=== PATIENT | male | born 1945 | race Caucasian/White ===

== ENCOUNTER 2019-06-25 08:29 | Inpatient (IN) | payer OTHER ==
[~2019-06-25] VITALS: Ht 172.7 cm; Wt 86.2 kg
[2019-06-25 08:30] VITALS: BP_SYST 159
--- NOTE | 2019-06-25 08:30 | NUR ---
BROUGHT BACK TO BED #6 AND TRIAGED. REPORT GIVEN TO VASILIY
--- NOTE | 2019-06-25 08:35 | NUR ---
ER at bedside examining patient.
--- NOTE | 2019-06-25 08:40 | NUR ---
PT CAME TO ER C/O L CHEST PRESSURE, PT STATES NO PAIN. HE WAS LAYING ON COUCH WITH HIS DOG WHEN HE BEGAN TO FEEL THIS PRESSURE. PT IS CURRENTLY COMFORTABLE IN ROOM, ON MANAGEMENT NURSE RN
[2019-06-25] MEDS ORDERED: ASPIRIN 81 MG TAB.CHEW PO ONE (08:45)
--- NOTE | 2019-06-25 08:45 | NUR ---
# 20 gauge angiocath placed to LAC. Use of asceptic technique. Opsite placed over site. Blood return noted. Blood for lab drawn from site. Flushed with 10 cc of normal saline. No evidence of infiltration noted. Patient tolerated well.
[2019-06-25 09:20] LABS: BASOPHILS % (AUTO) 0.6 % (0.0-2.0); EOSINOPHILS # (AUTO) 0.1 K/uL (0.0-0.4); EOSINOPHILS % (AUTO) 1.6 % (0.0-4.0); HEMATOCRIT 46.1 % (36-54); HEMOGLOBIN 15.7 g/dL (14.0-18.0); LYMPHOCYTES # (AUTO) 2.3 K/uL (1.0-5.5); LYMPHOCYTES % (AUTO) 30.2 % (20.5-51.5); MEAN CORPUSCULAR HEMOGLOBIN 33 pg (27-31); MEAN CORPUSCULAR HGB CONC 34 % (32-36); MEAN CORPUSCULAR VOLUME 96 fL (79.0-98.0); MONOCYTES # (AUTO) 0.5 K/uL (0.0-1.0); MONOCYTES % (AUTO) 6.9 % (1.7-9.3); NEUTROPHILS # (AUTO) 4.7 K/uL (1.8-7.7); NEUTROPHILS % (AUTO) 60.7 % (40.0-70.0); PLATELET COUNT (AUTO) 189 K/uL (130-430); RED CELL DISTRIBUTION WIDTH 13.1 % (9.0-15.0); WHITE BLOOD COUNT (AUTO) 7.7 K/uL (4.8-10.8)
[2019-06-25 09:35] LABS: ANION GAP 6 (5-15); CALCIUM 8.4 mg/dL (8.4-11.0); CHLORIDE 104 mmol/L (98-107); CREATININE 0.89 mg/dL (0.55-1.30); GLUCOSE 116 mg/dL (70-99); POTASSIUM 3.9 mmol/L (3.5-5.1); SODIUM SERUM 138 mmol/L (136-145); UREA NITROGEN, BLOOD 14 mg/dL (8-21)
[2019-06-25 09:39] LABS: PROTHROMBIN TIME 9.8 SECS (9.5-12.5)
--- NOTE | 2019-06-25 09:43 | NUR ---
PT RESTING IN BED COMFORTABLY, NO PAIN REPORTED. AT BEDSIDE
--- NOTE | 2019-06-25 09:46 | NUR ---
CALLED CT. CT STILL PENDING
--- NOTE | 2019-06-25 11:11 | NUR ---
PT RESTING COMFORTABLY IN RNEY NO PAIN STATED
--- NOTE | 2019-06-25 11:59 | NUR ---
called for a tele bed. Currently waiting for a call back
[2019-06-25] MEDS ORDERED: SIMV20TA2 PO (12:01)
[2019-06-25] MEDS ORDERED: ATEN50TA PO (12:01)
[2019-06-25] MEDS ORDERED: AMLO5TAB92 PO (12:01)
--- NOTE | 2019-06-25 12:04 | NUR ---
Jessika w/ Rosalind REED CN, staff is unavailable to take pt's.
[2019-06-25] MEDS ORDERED: MORPHINE 2 MG/ML INJ. SYRINGE IVP PRN (13:15)
[2019-06-25] MEDS ORDERED: LORazepam 2 MG/ML VIAL IVP PRN (13:15)
[2019-06-25] MEDS ORDERED: ACETAMINOPHEN 325 MG TABLET PO PRN (13:15)
[2019-06-25] MEDS ORDERED: NITROGLYCERIN 0.4 MG TAB.SUBL SL PRN (13:15)
[2019-06-25] MEDS ORDERED: ZOLPIDEM TARTRATE 5 MG TABLET PO PRN (13:15)
--- NOTE | 2019-06-25 13:26 | NUR ---
pt currently resting comfortably in bed. Still waiting for a tele bed.
[2019-06-25] MEDS: NACL 0.9% 1,000 ML IV SCH (13:56)
--- NOTE | 2019-06-25 14:30 | NUR ---
Patient will be admitted to care of Dr. Paulson. Admitted to tele unit. Will go to room 117-b. Belongings list completed. Complete and up to date summary report printed. SBAR report to be given at bedside with opportunity for questions.Report given to Nighat CEDILLO.
--- NOTE | 2019-06-25 14:31 | NUR ---
ADMISSION NOTE Received patient from ER via jose, received report from VASILIY CEDILLO. Patient admitted with diagnosis of CHEST PAIN. Patient oriented to hospital routine, call light, toileting and safety-patient verbalized understanding.
--- NOTE | 2019-06-25 14:34 | NUR ---
CONSULTATION PAGED REASON FOR CONSULTATION:CHEST PAIN WAS CONSULT CALLED?Y PERSON WHO WAS NOTIFIED:DESTIN CONSULTING PHYSICIAN:LISSA DIAZ DRILLING MACHINE RUNNER SPECIALTY:CARDIO DRILLING MACHINE RUNNER PHONE NUMBER:[phone] ORDERING PHYSICIAN:DR.SINGHBRANDON
[2019-06-25 14:47] VITALS: BP_SYST 139
[2019-06-25 15:37] VITALS: BP_SYST 132
--- NOTE | 2019-06-25 18:45 | NUR ---
Denies any chest pain telemetry Normal sinus andreina at 50/min denies any dizziness, will monitor.
[2019-06-25 20:00] VITALS: BP_SYST 112
[2019-06-25] MEDS: METOPROLOL TARTRATE 25 MG TABLET PO SCH (21:00)
--- NOTE | 2019-06-25 22:00 | NUR ---
PT RECIEVED AWAKE ALERT AND ORIENTED .PT FOLLOWS COMMAND .PTHAVE IV NS AT 70CC/HR . VITAL SIGN STABLE . PT ON SINUS JARETH 50/MIN . LOPRESSOR HELD. FOR HR 40/MIN . PT ON ROOM AIR . PT AMBULATES TO THE BATHROOM WITH A WALKER WILL CONTINUE TO MONITOR PT . PT HAVE NO CONPLAIN OF ANY PAIN .
--- NOTE | 2019-06-26 | NUR ---
PT SLEEPING . PT VITAL STABLE . STILL ON SINU JARETH .IV NS STILL AT 70CC/HR .
[2019-06-26] MEDS: NACL 0.9% 1,000 ML IV SCH (03:33)
--- NOTE | 2019-06-26 05:00 | NUR ---
PT SLEPT VERY WELL . PT HAVE NO C/O OF OF CHEST PAIN . NO SOB . WILL CONTINUE TO MONITOR PT .
[2019-06-26 06:37] LABS: BASOPHILS % (AUTO) 0.5 % (0.0-2.0); EOSINOPHILS # (AUTO) 0.1 K/uL (0.0-0.4); EOSINOPHILS % (AUTO) 1.5 % (0.0-4.0); HEMATOCRIT 42.5 % (36-54); HEMOGLOBIN 14.7 g/dL (14.0-18.0); LYMPHOCYTES # (AUTO) 2.7 K/uL (1.0-5.5); LYMPHOCYTES % (AUTO) 31.6 % (20.5-51.5); MEAN CORPUSCULAR HEMOGLOBIN 33 pg (27-31); MEAN CORPUSCULAR HGB CONC 35 % (32-36); MEAN CORPUSCULAR VOLUME 96 fL (79.0-98.0); MONOCYTES # (AUTO) 0.7 K/uL (0.0-1.0); MONOCYTES % (AUTO) 7.9 % (1.7-9.3); NEUTROPHILS # (AUTO) 5.1 K/uL (1.8-7.7); NEUTROPHILS % (AUTO) 58.5 % (40.0-70.0); PLATELET COUNT (AUTO) 188 K/uL (130-430); RED BLOOD CELL COUNT(AUTO) 4.44 MIL/uL (4.2-6.2); RED CELL DISTRIBUTION WIDTH 13.1 % (9.0-15.0); WHITE BLOOD COUNT (AUTO) 8.7 K/uL (4.8-10.8)
[2019-06-26 08:00] VITALS: BP_SYST 127
[2019-06-26 08:01] LABS: ALANINE AMINOTRANSFERASE 29 U/L (12-78); ALBUMIN 3.1 g/dL (3.4-4.8); ANION GAP 5 (5-15); ASPARTATE AMINOTRANSFERASE 18 U/L (10-37); CALCIUM 8.1 mg/dL (8.4-11.0); CHLORIDE 107 mmol/L (98-107); GLUCOSE 89 mg/dL (70-99); POTASSIUM 3.9 mmol/L (3.5-5.1); SODIUM SERUM 140 mmol/L (136-145); TOTAL BILIRUBIN 0.7 mg/dL (0.0-1.0); UREA NITROGEN, BLOOD 17 mg/dL (8-21)
[2019-06-26 08:02] LABS: THYROID STIMULATING HORMONE 3.83 uIu/mL (0.36-3.74)
[2019-06-26 08:09] LABS: CHOLESTEROL 134 mg/dL (<200); HDL CHOLESTEROL 33 mg/dL (>45); LDL CHOLESTEROL 81 mg/dL (<100); TRIGLYCERIDES 101 mg/dL (30-150)
[2019-06-26] MEDS ORDERED: ATENOLOL 50 MG TABLET (TENORMIN) PO SCH (09:00)
[2019-06-26] MEDS: METOPROLOL TARTRATE 25 MG TABLET PO SCH (09:00)
[2019-06-26] MEDS ORDERED: CLOPIDOGREL BISULFATE 75 MG TABLET PO SCH (09:00)
[2019-06-26] MEDS ORDERED: amLODIPine BESYLATE 5 MG TABLET PO SCH (09:00)
[2019-06-26] MEDS ORDERED: ATORVASTATIN 20 MG TABLET PO SCH (09:00)
[2019-06-26] MEDS ORDERED: ASPIRIN 81 MG TAB.CHEW PO SCH (09:00)
[2019-06-26] MEDS ORDERED: ASA81 PO (10:04)
[2019-06-26] MEDS ORDERED: ATEN-41 PO (10:04)
[2019-06-26] MEDS ORDERED: NORMAL SALINE 5 ML DISP.SYRIN IVF SCH (14:00)
[2019-06-26 15:40] VITALS: BP_SYST 127
--- NOTE | 2019-06-26 16:40 | NUR ---
2D ECHO completed. spoke to attending concerning dischg.instructions. IV saline lock discontinued. telemetry unit dc'd. Discharge packet given to pt and sig obtained. discharged to home with
[2019-06-26] MEDS ORDERED: SIMVASTATIN 20 MG TABLET PO SCH (21:00)
--- NOTE | 2019-07-02 12:24 | NUR ---
Discharge Follow Up Phone Call Phoned patient, , and left a voicemail message with offer of assistance, reminder to make follow up appointment, and Social Service contact information. Will remain available for call back.
== END 2019-06-26 14:00 | disposition home or self-care (01) | DRG 880 ==
LOC: SED 08:29 → STU 11:55
PROVIDERS: ADMIT General Practice; ATTEND General Practice
DX: F41.9 Anxiety disorder, unspecified (principal); E44.1 Mild protein-calorie malnutrition; E78.5 Hyperlipidemia, unspecified; N40.0 Benign prostatic hyperplasia without lower urinary tract symptoms; E02 Subclinical iodine-deficiency hypothyroidism; F43.10 Post-traumatic stress disorder, unspecified; I10 Essential (primary) hypertension; Z79.899 Other long term (current) drug therapy; Z82.49 Family history of ischemic heart disease and other diseases of the circulatory system; Z85.46 Personal history of malignant neoplasm of prostate; Z87.891 Personal history of nicotine dependence; Z90.79 Acquired absence of other genital organ(s); Z79.82 Long term (current) use of aspirin; Z90.49 Acquired absence of other specified parts of digestive tract
CPT/HCPCS: 36415; 70450-TC; 71045; 80048; 80053; 80061; 83735-TC; 84443-TC; 84484; 85025; 85610-TC; 85730-TC; 93005; 93306; 99285; G0378

== ENCOUNTER 2022-06-15 15:33 | Emergency (ER) | payer OTHER ==
[~2022-06-15] VITALS: Ht 175.3 cm; Wt 83.9 kg
[~2022-06-15 15:33] MED LIST: AMLO5TAB92 PO; ASA81 PO; ATEN-41 PO; SIMV-343 PO
[2022-06-15 15:44] VITALS: BP_SYST 172
[2022-06-15] MEDS ORDERED: ATENOLOL 50 MG TABLET (TENORMIN) PO ONE (16:45)
[2022-06-15] MEDS ORDERED: OMEPRAZOLE Non-Formulary 20 MG CAPSULE.DR PO SCH (16:45)
[2022-06-15 17:07] LABS: BASOPHILS % (AUTO) 0.3 % (0.0-2.0); EOSINOPHILS % (AUTO) 0.4 % (0.0-4.0); HEMATOCRIT 48.6 % (36-54); HEMOGLOBIN 16.4 g/dL (14.0-18.0); LYMPHOCYTES # (AUTO) 1.4 K/uL (1.0-5.5); LYMPHOCYTES % (AUTO) 11.1 % (20.5-51.5); MEAN CORPUSCULAR HEMOGLOBIN 32 pg (27-31); MEAN CORPUSCULAR HGB CONC 34 % (32-36); MEAN CORPUSCULAR VOLUME 94 fL (79.0-98.0); MONOCYTES # (AUTO) 0.6 K/uL (0.0-1.0); NEUTROPHILS # (AUTO) 10.4 K/uL (1.8-7.7); NEUTROPHILS % (AUTO) 83.2 % (40.0-70.0); PLATELET COUNT (AUTO) 251 K/uL (130-430); RED BLOOD CELL COUNT(AUTO) 5.15 MIL/uL (4.2-6.2); RED CELL DISTRIBUTION WIDTH 13.2 % (9.0-15.0); WHITE BLOOD COUNT (AUTO) 12.5 K/uL (4.8-10.8)
[2022-06-15] MEDS ORDERED: PANTOPRAZOLE SODIUM 40 MG TAB PO ONE ×2 (17:15→19:42)
[2022-06-15 17:18] LABS: ANION GAP 8 (5-15); CALCIUM 10.1 mg/dL (8.4-11.0); CHLORIDE 101 mmol/L (98-107); CREATININE 0.98 mg/dL (0.55-1.30); GLUCOSE 106 mg/dL (70-99); UREA NITROGEN, BLOOD 15 mg/dL (8-21)
[2022-06-15 17:27] LABS: ALANINE AMINOTRANSFERASE 44 U/L (12-78); ALBUMIN 4.2 g/dL (3.4-4.8); ASPARTATE AMINOTRANSFERASE 31 U/L (10-37); TOTAL BILIRUBIN 0.6 mg/dL (0.0-1.0)
[2022-06-15] MEDS ORDERED: ATENOLOL 50 MG TABLET (TENORMIN) ONE (19:42)
[2022-06-15 21:01] VITALS: BP_SYST 159
== END 2022-06-15 21:01 | disposition home or self-care (01) ==
LOC: SED 15:33
DX: I10 Essential (primary) hypertension (principal); R51.9 Headache, unspecified; K21.9 Gastro-esophageal reflux disease without esophagitis; Z79.899 Other long term (current) drug therapy
CPT/HCPCS: 36415; 80053; 83880; 84484; 85025; 93005; 99285

== ENCOUNTER 2022-06-29 13:33 | Emergency (ER) | payer OTHER ==
[~2022-06-29] VITALS: Ht 172.7 cm; Wt 86.2 kg
--- NOTE | 2022-06-29 13:35 | NUR ---
Pt brought by self, A&Ox4, pt presents to ER with high blood presure 171/91, skin pink and warm, cap refill <3, VSS, will cont to monitor
[2022-06-29 13:44] VITALS: BP_SYST 174
--- NOTE | 2022-06-29 14:45 | NUR ---
Dr Chavez evaluating patient at bedside
--- NOTE | 2022-06-29 16:12 | NUR ---
Pt brought by self, A&Ox4, VSS, respirations even and unlabored
[2022-06-29 16:38] LABS: BASOPHILS % (AUTO) 0.2 % (0.0-2.0); EOSINOPHILS % (AUTO) 0.2 % (0.0-4.0); HEMATOCRIT 45.6 % (36-54); HEMOGLOBIN 15.3 g/dL (14.0-18.0); LYMPHOCYTES # (AUTO) 1.7 K/uL (1.0-5.5); LYMPHOCYTES % (AUTO) 14.3 % (20.5-51.5); MEAN CORPUSCULAR HEMOGLOBIN 32 pg (27-31); MEAN CORPUSCULAR HGB CONC 34 % (32-36); MEAN CORPUSCULAR VOLUME 95 fL (79.0-98.0); MONOCYTES # (AUTO) 0.6 K/uL (0.0-1.0); MONOCYTES % (AUTO) 5.5 % (1.7-9.3); NEUTROPHILS # (AUTO) 9.4 K/uL (1.8-7.7); NEUTROPHILS % (AUTO) 79.8 % (40.0-70.0); PLATELET COUNT (AUTO) 209 K/uL (130-430); RED BLOOD CELL COUNT(AUTO) 4.79 MIL/uL (4.2-6.2); RED CELL DISTRIBUTION WIDTH 13.2 % (9.0-15.0); WHITE BLOOD COUNT (AUTO) 11.7 K/uL (4.8-10.8)
[2022-06-29 16:52] LABS: ANION GAP 7 (5-15); CALCIUM 9.3 mg/dL (8.4-11.0); CHLORIDE 104 mmol/L (98-107); GLUCOSE 109 mg/dL (70-99); UREA NITROGEN, BLOOD 17 mg/dL (8-21)
[2022-06-29 17:00] LABS: ALANINE AMINOTRANSFERASE 34 U/L (12-78); ALBUMIN 3.8 g/dL (3.4-4.8); ASPARTATE AMINOTRANSFERASE 24 U/L (10-37); LIPASE 191 U/L (73-393); TOTAL BILIRUBIN 0.5 mg/dL (0.0-1.0)
[2022-06-29] MEDS ORDERED: OMEP-268 PO (18:48)
[2022-06-29 19:38] VITALS: BP_SYST 174
--- NOTE | 2022-06-29 19:38 | NUR ---
Patient given written and verbal discharge instructions and verbalizes understanding. ER MD discussed with patient the results and treatment provided. Patient in stable condition. ID arm band removed. Rx of HTN,GERD given. Patient educated on pain management and to follow up with PMD. Pain Scale 2/10 Opportunity for questions provided and answered. Medication side effect fact sheet provided.
== END 2022-06-29 19:38 | disposition home or self-care (01) ==
LOC: SED 13:33
DX: I10 Essential (primary) hypertension (principal); R10.13 Epigastric pain; K21.9 Gastro-esophageal reflux disease without esophagitis; Z79.899 Other long term (current) drug therapy
CPT/HCPCS: 36415; 80053; 83690; 84484; 85025; 93005; 99284